=== PATIENT | female | born 1935 | race Caucasian/White ===

== ENCOUNTER 2017-04-10 11:09 | Day surgery (SDC) | payer MEDICARE, OTHER ==
[~2017-04-10] VITALS: Ht 149.9 cm; Wt 49.0 kg
--- NOTE | ~2017-04-10 | EGD ---
EGD REPORT [facility] [address] [place] [id number] NAME: BELA JOHNSON : 37 STATUS : [facility] UNIT#: [id number] AGE: 82 ADM/REG DATE : 04/10/17 MR#: [id number] REPORT SERV DATE: 04/14/17 DICTATED BY: KATARINA MERCADO DATE: 04/14/17 REPORT STATUS : Draft TRANSCRIBED BY: [facility] DATE: 04/14/17 [facility] Patient Name: Bela Johnson Date of : 1935 Attending MD: KATARINA MERCADO MD Procedure Date No Time: 04/10/2017 Procedure: Colonoscopy Indications: Surveillance: History of adenomatous polyps, inadequate prep on last exam (<3yr) Referring MD: SEAN MARTINEZ Medicines: Propofol per Anesthesia Complications: No immediate complications. Estimated blood loss: None. Procedure: Pre-Anesthesia Assessment: - After reviewing the risks and benefits, the patient was deemed in satisfactory condition to undergo the procedure. - Prior to the procedure, a History and Physical was performed, and patient medications and allergies were reviewed. The patient's tolerance of previous anesthesia was also reviewed. The risks and benefits of the procedure and the sedation options and risks were discussed with the patient. All questions were answered, and informed consent was obtained. Prior Anticoagulants: The patient has taken no previous anticoagulant or antiplatelet agents. ASA Grade Assessment: II - A patient with mild systemic disease. After reviewing the risks and benefits, the patient was deemed in satisfactory condition to undergo the procedure. After I obtained informed consent, the scope was passed under direct vision. Throughout the procedure, the patient's blood pressure, pulse, and oxygen saturations were monitored continuously. The CF [id number] was introduced through the anus and advanced to the cecum, identified by appendiceal orifice and ileocecal valve. The colonoscopy was performed without difficulty. The ileocecal valve and appendiceal orifice were photographed. The patient tolerated the procedure well. The quality of the bowel preparation was adequate. The bowel preparation used was an extended prep with polyethylene glycol (PEG) and magnesium citrate. Scope withdrawal time was greater than 10 minutes. Findings: The perianal and digital rectal examinations were normal. Pertinent negatives include normal sphincter tone. EGD REPORT [address] [address] NAME: BELA JOHNSON : 37 STATUS : [facility] PAT#: [id number] AGE: 82 ADM/REG DATE : 04/10/17 MR#: [id number] REPORT SERV DATE: 04/14/17 DICTATED BY: KATARINA MERCADO DATE: 04/14/17 REPORT STATUS : Draft TRANSCRIBED BY: [employer] DATE: 04/14/17 Non-bleeding internal hemorrhoids were found during retroflexion and were small and Grade I (internal hemorrhoids that do not prolapse). The exam was otherwise without abnormality. Impression: - Non-bleeding internal hemorrhoids. - The examination was otherwise normal. Recommendation: - Discharge patient to home (ambulatory). - Return to previous diet. - Continue present medications. - Repeat colonoscopy will not be performed due to advanced age. - Return to GI clinic PRN. - Patient has a contact number available for emergencies. The signs and symptoms of potential delayed complications were discussed with the patient. Return to normal activities tomorrow. Written discharge instructions were provided to the patient. Procedure Code(s): --- Professional --- G0105, Colorectal cancer screening; colonoscopy on individual at high risk Diagnosis Code(s): --- Professional --- K64.0, First degree hemorrhoids Z86.010, Personal history of colonic polyps CPT copyright 2013 [employer]. All rights reserved. The codes documented in this report are preliminary and upon xray tech review may be revised to meet current compliance requirements. KATARINA MERCADO MD 04/10/2017 1:35 PM This report has been signed electronically. Number of Addenda: 0 Note Initiated On: 04/10/2017 12:17 PM Scope Withdrawal Time 0 hours 11 minutes 5 seconds [id number] [id number]
[~2017-04-10 11:09] MED LIST: ASAB PO; CALTRA600D PO; FISH-EPA1000 MG PO; NORV5 PO
== END 2017-04-10 23:59 | disposition home or self-care (01) ==
LOC: DMU 11:09
PROVIDERS: Internal Medicine Gastroenterology
PROC: 0DJD8ZZ Inspection of Lower Intestinal Tract, Via Natural or Artificial Opening Endoscopic (ICD-10-PCS; principal; 2017-04-10 12:45)
DX: K64.0 First degree hemorrhoids (principal); I10 Essential (primary) hypertension; M19.90 Unspecified osteoarthritis, unspecified site; Z90.711 Acquired absence of uterus with remaining cervical stump; Z86.010 Personal history of colon polyps; Z79.82 Long term (current) use of aspirin; Z79.899 Other long term (current) drug therapy; Z98.890 Other specified postprocedural states